=== PATIENT | female | born 1945 | race Caucasian/White ===

== ENCOUNTER 2016-11-29 12:23 | Emergency (ER) | payer OTHER ==
[2017-04-29] MEDS ORDERED: CELEXA40 MG PO (09:56)
[2017-04-29] MEDS ORDERED: BUSPIRONE HCL10 MG PO (09:56)
[2017-04-29] MEDS ORDERED: NEURONTIN100 MG PO (09:56)
[2017-04-29] MEDS ORDERED: CLARITIN10 MG PO (09:56)
[2017-04-29] MEDS ORDERED: ASPIRIN EC81 MG PO (09:57)
[2017-04-29] MEDS ORDERED: MILK THISTLE175 M1 PO (09:57)
[2017-04-29] MEDS ORDERED: GINGER ROOT550 MG PO (09:58)
[2017-04-29] MEDS ORDERED: ZANTAC150 MG PO (09:58)
[2017-04-29] MEDS ORDERED: ZINC50 M2 PO (09:58)
[2017-04-29] MEDS ORDERED: BLACK COHOSH540 MG PO (09:58)
[2017-04-29] MEDS ORDERED: CIPRO500 MG PO (09:59)
[2017-04-29] MEDS ORDERED: FLAGYL500 MG PO (10:00)
== END 2016-11-29 16:00 | disposition home or self-care (01) ==
LOC: ER 12:23
DX: R10.11 Right upper quadrant pain (principal); R11.2 Nausea with vomiting, unspecified; M81.0 Age-related osteoporosis without current pathological fracture; Z90.49 Acquired absence of other specified parts of digestive tract; Z90.711 Acquired absence of uterus with remaining cervical stump; Z79.82 Long term (current) use of aspirin; Z79.899 Other long term (current) drug therapy; Z88.5 Allergy status to narcotic agent; Z88.8 Allergy status to other drugs, medicaments and biological substances
CPT/HCPCS: 36415; 96374; 96375; 96376